=== PATIENT | male | born 1980 | race Two or more races ===

== ENCOUNTER 2020-05-01 11:00 | Day surgery (SDC) | payer OTHER | END 2020-05-01 17:10 | disposition home or self-care (01) | LOC: CIR.AMB 11:00 | PROVIDERS: ATTEND Orthopaedic Surgery | DX: S46.121A Laceration of muscle, fascia and tendon of long head of biceps, right arm, initial encounter (principal); Z20.828 Contact with and (suspected) exposure to other viral communicable diseases ==